=== PATIENT | female | born 1955 | race Caucasian/White ===

== ENCOUNTER 2018-07-01 08:25 | Outpatient (CLI) | payer OTHER | END 2018-07-01 08:28 | disposition home or self-care (01) | LOC: SONOGRAMA 08:25 | DX: E04.2 Nontoxic multinodular goiter (principal) ==

== ENCOUNTER 2020-04-30 08:41 | Outpatient (CLI) | payer OTHER | END 2020-04-30 08:52 | disposition home or self-care (01) | LOC: SONOGRAMA 08:41 | PROVIDERS: ATTEND Pathology Anatomic Pathology & Clinical Pathology | DX: D34 Benign neoplasm of thyroid gland (principal); E04.2 Nontoxic multinodular goiter; E07.89 Other specified disorders of thyroid; E04.8 Other specified nontoxic goiter ==

== ENCOUNTER 2020-10-29 07:39 | Outpatient (CLI) | payer OTHER | END 2020-10-29 08:00 | disposition home or self-care (01) | LOC: SONOGRAMA 07:39 | PROVIDERS: ATTEND Pathology Anatomic Pathology & Clinical Pathology | DX: D34 Benign neoplasm of thyroid gland (principal); E04.8 Other specified nontoxic goiter ==